=== PATIENT | female | born 1980 | race Caucasian/White ===

== ENCOUNTER → 2018-02-05 | Outpatient (CLI) | payer OTHER ==
[2018-02-04 16:44] VITALS: BMI 56.5
[2018-02-05 13:56] VITALS: PULSE 107; RESP 16
--- NOTE | 2018-02-05 14:17 | P.HPIM ---
History of Present Illness H&P Date: 02/05/18 Chief Complaint: thoracic back pain and bilateral buttock pain This is a 37-year-old patient referred by Dr. Silva for chronic pain in thoracic spine and in low back. Patient has been taking medications from primary care physician including only tramadol medications from neurologist with some relief. Patient denies adverse drug effects from medications. Patient also denies new-onset weakness, bowel/bladder incontinence, or any other signs or symptoms of cauda equina syndrome. There are no signs of acute intoxication, and no indications of medication diversion or overuse. Patient notes that pain worsens significantly with extension of the mid-back and standing upright and improves with rest, bending forward and medication. Patient has used several types of medications for pain, including NSAIDS, TRAMADOL. Patient HAS NOT had surgery. Patient /HAS NOT had injections previously. Patient HAS had physical therapy recently without substantial relief. In addition to above, 13-point review of systems is also negative for chest pain , shortness of breath, changes in vision, changes in hearing, new onset weakness , abdominal pain, diarrhea, extreme fatigue, malaise, fever, skin changes, homicidal or suicidal ideation, or bowel or bladder incontinence. 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, steroids January 2018 History of Any Multi-Drug Resistant Organisms: None Reported Past Surgical History: Section Additional Past Surgical History / Comment(s): LEEP,C-sect x2 Past Anesthesia/Blood Transfusion Reactions: Previous Problems w/ Anesthesia Additional Past Anesthesia/Blood Transfusion Reaction / Comment(s): vomiting during Smoking Status: Never smoker Past Alcohol Use History: Occasional Past Drug Use History: None Reported - Past Family History Mother Family Medical History: No Reported History Medications and Allergies Home Medications Medication Instructions Recorded Confirmed Type Enskyce Control 1 tab PO DAILY 02/04/18 02/04/18 History Ergocalciferol [Vitamin D2] 50,000 unit PO Q7D 02/04/18 02/04/18 History Gabapentin [Neurontin] 300 mg PO TID 02/04/18 02/04/18 History Magnesium 400 mg PO DAILY 02/04/18 02/04/18 History Multivitamins, Thera [Multivitamin 1 tab PO DAILY 02/04/18 02/04/18 History (formulary)] Naproxen [Naprosyn] 500 mg PO Q12HR 02/04/18 02/04/18 History Orphenadrine [Norflex] 100 mg PO Q12H 02/04/18 02/04/18 History Spironolactone [Aldactone] 100 mg PO DAILY 02/04/18 02/04/18 History Venlafaxine HCl [Effexor XR] 75 mg PO DAILY 02/04/18 02/04/18 History traMADol HCL [Ultram] 50 mg PO Q6HR PRN 02/04/18 02/04/18 History Allergies Allergy/AdvReac Type Severity Reaction Status Date / Time adhesive tape Allergy Rash/Hives Verified 02/04/18 16:34 latex Allergy Rash/Hives Verified 02/04/18 16:34 Sulfa (Sulfonamide Allergy Rash/Hives Verified 02/04/18 16:34 Antibiotics) metals Allergy Rash/Hives Uncoded 02/04/18 16:34 Physical Exam Vitals: Vital Signs Pulse Resp Pulse Ox 02/05/18 13:42 107 H 16 98 Intake and Output 02/04/18 02/05/18 02/05/18 22:59 06:59 14:59 Other: Weight 158.757 kg Assessment and Plan (1) Thoracic radiculitis Current Visit: Yes Status: Chronic Code(s): M54.14 - RADICULOPATHY, THORACIC REGION SNOMED Code(s): 6350207 (2) Chronic pain syndrome Current Visit: Yes Status: Chronic Code(s): G89.4 - CHRONIC PAIN SYNDROME SNOMED Code(s): 556101138 (3) Obesity Current Visit: Yes Status: Chronic Code(s): E66.9 - OBESITY, UNSPECIFIED SNOMED Code(s): 605889539 Plan: 1. Explanation: Opioid and psychological risk scores were reviewed. Diagnoses , prognoses, and multiple treatment options including but not limited to physical therapy, interventional therapies, adjuvant medical therapies, narcotic medication therapies, and surgery were discussed with the patient and all questions were answered to the patient's satisfaction. 2. Opioid agreement: no opioids prescribed today 3. Counseling: The patient was counseled extensively on SMOKING CESSATION, BODY MASS INDEX, EXERCISE. Specifically, the patient was instructed regarding the importance of smoking cessation, weight control, and exercise in the context of both chronic pain and overall health. 4. Procedures: thoracic YUN T8-T9 if possible, consider T9-T10 5. Consultations: none 6. Investigations: none 7. Medications: none prescribed 8. Disposition: f/u for procedure as scheduled Time with Patient: Greater than 30
== END | disposition home or self-care (01) ==
LOC: PNWHC3 13:18
PROVIDERS: ATTEND Anesthesiology
DX: G89.4 Chronic pain syndrome (principal); M54.6 Pain in thoracic spine; M54.14 Radiculopathy, thoracic region; E66.9 Obesity, unspecified; Z79.891 Long term (current) use of opiate analgesic; Z79.01 Long term (current) use of anticoagulants; Z79.899 Other long term (current) drug therapy; Z88.2 Allergy status to sulfonamides; Z91.048 Other nonmedicinal substance allergy status; Z91.040 Latex allergy status; Z68.43 Body mass index [BMI] 50.0-59.9, adult
CPT/HCPCS: 99211

== ENCOUNTER 2018-03-13 07:59 | Day surgery (SDC) | payer OTHER ==
[2018-03-07 12:26] VITALS: BMI 41.9
[2018-03-13 09:35] VITALS: RESP 16; TEMP 98.9
[2018-03-13] MEDS ORDERED: LACTATED RINGERS 1,000 ML IV ONE (09:38)
[2018-03-13] MEDS ORDERED: LIDOCAINE 1% 20 ML VIAL (10MG/ML) FOR IV START INTRADERMA ONE (09:38)
[2018-03-13] MEDS ORDERED: LACTATED RINGERS 1,000 ML IV SCH (10:00)
--- NOTE | 2018-03-13 10:03 | P.PCN ---
Date of Procedure: 03/13/18 Surgeon: Anmol Crawford Description of Procedure: PREOPERATIVE DIAGNOSIS: Thoracic radiculopathy Thoracic degenerative disc disease POSTOPERATIVE DIAGNOSIS: Same PROCEDURE Thoracic epidural steroid injection with fluoroscopic guidance T8 9 Conscious sedation ANESTHESIA: Local with 1% lidocaine 3 ml and IV sedation with Versed 2 mg EBL: Minimal PROCEDURE INDICATION: The patient with mid back pain and radiculitis symptoms unresponsive to conservative treatment. Fluoroscopy was used to optimize visualization of the needle placement and to maximize safety. PROCEDURE DESCRIPTION / TECHNIQUE: The patient was seen and identified in the preoperative area. Risks, benefits , complications including but not limited to infections ,bleeding ,allergic reaction to the medications ,nerve damage and not complete pain relief , and alternatives were discussed with the patient. The patient agreed to proceed with the procedure and signed the consent. IV was started, and vital signs were stable. Patient was taken to the OR and time out was completed. The patient was placed in the prone position on procedure table. The thoracic area was prepped and draped in the usual sterile fashion.ere closely monitored during the procedure. Conscious sedation was used during the procedure to decrease patients anxiety. Vital signs was monitered during the entire procedure. Using anterior-posterior fluoroscopy, the T8 9 interlaminar space was identified and the skin over this site was marked and then infiltrated with 1% lidocaine subcutaneously. Subsequently, a 20-gauge Tuohy epidural needle was inserted and advanced toward the epidural space using the Loss of resistance technique and guided by AP and lateral fluoroscopy. The correct needle position in the epidural space was verified with the injection of contrast and observing an excellent epidurogram with the epidural spread of the dye, after negative aspiration for blood and CSF and in the absence of paresthesias. Again after negative aspiration, a 6 ml mixture containing 20 mg of Dexamethasone was injected and a washout of epidurogram was seen. Needle was withdrawn intact , skin was cleansed, and bandages were applied. COMPLICATIONS: None DISPOSITION / PLANS: The patient was placed in a supine position and transferred to the recovery area in a stable condition for observation. There was no evidence of lower extremity motor or sensory deficit after the procedure. Patient was discharged from the recovery room after meeting discharge criteria. Home discharge instructions were given to the patient by the staff. The patient was reexamined prior to discharge. The patient will schedule a follow up for repeat of this procedure in 2-4 weeks.
[2018-03-13] MEDS ORDERED: IV FLUID CONTINUATION 1,000 ML IV ONE (10:11)
[2018-03-13 10:35] VITALS: BP 149/83; PULSE 99
--- NOTE | 2018-03-13 11:48 | FL ---
Fluoroscopy HISTORY: Pain 1 seconds fluoroscopy time supplied to the referring clinician. 1 intraoperative C-arm images docume nt the procedure. See dictated report from anesthesia.
== END 2018-03-13 10:47 | disposition home or self-care (01) ==
LOC: ORPAIN 07:59
PROVIDERS: ATTEND Pain Medicine Pain Medicine
DX: M51.14 Intervertebral disc disorders with radiculopathy, thoracic region (principal); R42 Dizziness and giddiness; Z88.2 Allergy status to sulfonamides; Z91.040 Latex allergy status; Z91.048 Other nonmedicinal substance allergy status
CPT/HCPCS: 81025; 62321; J2250; J1100; J3010